=== PATIENT | female | born 1990 | race African-American/Black ===

== ENCOUNTER 2022-06-25 11:37 | Emergency (ER) | payer MEDICAID ==
[~2022-06-25] VITALS: Ht 152.4 cm; Wt 59.1 kg
[2022-06-25 11:57] VITALS: BP 116/81
[2022-06-25] MEDS ORDERED: ATI1T PO (13:20)
[2022-06-25] MEDS ORDERED: ONDA4TAB12 PO (13:20)
== END 2022-06-25 13:35 | disposition home or self-care (01) ==
LOC: ER 11:37
DX: F10.10 Alcohol abuse, uncomplicated (principal); R19.7 Diarrhea, unspecified; Z00.8 Encounter for other general examination; Y90.9 Presence of alcohol in blood, level not specified
CPT/HCPCS: 99283